=== PATIENT | male | born 1995 | race African-American/Black ===

== ENCOUNTER 2024-06-08 10:23 | Emergency (ER) | payer MEDICAID ==
[~2024-06-08] VITALS: Ht 172.7 cm; Wt 70.0 kg
[2024-06-08 10:36] VITALS: O2SAT 100
[2024-06-08] MEDS: ONDANSETRON HCL 4MG/2ML INJ IV STA (10:52)
[2024-06-08] MEDS: SODIUM CHLORIDE 0.9% 1,000 ML IV ONE ×2 (11:00→13:45)
[2024-06-08 11:01] LABS: BASOPHILS % 0.4 % (0.0-2.0); HEMATOCRIT. 43.8 % (42.0-52.0); HEMOGLOBIN. 15.5 g/dL (14.0-18.0); LYMPHOCYTES % 7.8 % (20.0-50.0); MEAN CORPUSCULAR HEMOGLOBIN 32.5 pg (28.0-32.0); MEAN CORPUSCULAR HGB CONC 35.3 g/dL (31.0-37.0); MEAN CORPUSCULAR VOLUME 92.2 fL (80.0-94.0); MEAN PLATELET VOLUME 8.4 fl (7.4-10.4); MONOCYTES % 2.4 % (2.0-8.0); NEUTROPHILS % 89.4 % (40.0-76.0); PLATELET 307 x1000/uL (130-400); RED BLOOD CELL COUNT 4.75 mill/uL (4.7-6.1); RED CELL DISTRIBUTION WIDTH 14.1 % (11.6-14.6); WHITE BLOOD COUNT 9.1 x1000/uL (4.5-11.0)
[2024-06-08 11:13] LABS: CHLORIDE 97 mEq/L (98-107); POTASSIUM 4.9 mEq/L (3.5-5.1); SODIUM 131 mEq/L (136-145)
[2024-06-08 11:14] LABS: CALCIUM 9.5 mg/dL (8.7-10.4); CARBON DIOXIDE 24 mEq/L (21-32)
[2024-06-08 11:19] LABS: CREATININE 1.9 mg/dL (0.6-1.3); GLUCOSE 159 mg/dL (70-105)
[2024-06-08 11:20] LABS: UREA NITROGEN BLOOD 32 mg/dL (9-23)
[2024-06-08 11:21] LABS: ALANINE AMINOTRANSFERASE 55 IU/L (10-49); ALBUMIN 5.3 g/dL (3.2-4.8); ASPARTATE AMINOTRANSFERASE 124 IU/L (<34); BILIRUBIN TOTAL 1.5 mg/dL (0.1-1.0)
[2024-06-08 11:22] LABS: PROTEIN TOTAL 8.8 g/dL (6.0-8.3)
[2024-06-08 16:00] VITALS: BP 140/78; PULSE 73; RESP 17; TEMP 98
[2024-06-08 16:17] LABS: CLARITY URINE CLEAR (CLEAR); COLOR URINE YELLOW (YELLOW); GLUCOSE URINE TRACE (NEGATIVE); KETONES URINE 1+ (NEGATIVE); LEUKOCYTE ESTERASE URINE NEGATIVE (NEGATIVE); NITRITE URINE NEGATIVE (NEGATIVE); OCCULT BLOOD URINE NEGATIVE (NEGATIVE); PH URINE 5.5 (4.5-8.0); PROTEIN URINE NEGATIVE (NEGATIVE); UROBILINOGEN URINE 0.2 E.U./dL (0.2-1.0)
[2024-06-08 16:25] LABS: *AMPHETAMINES SCREEN URINE NEGATIVE (NEGATIVE); *BARBITURATES SCREEN URINE NEGATIVE (NEGATIVE); *BENZODIAZEPINES SCREEN URINE NEGATIVE (NEGATIVE); *COCAINE SCREEN URINE NEGATIVE (NEGATIVE); CANNABINOID URINE SCREEN PRESUMPTIVE POSITIVE (NEGATIVE); ECSTASY MDMA SCREEN URINE NEGATIVE (NEGATIVE); METHADONE URINE SCREEN NEGATIVE (NEGATIVE); OPIATES URINE SCREEN NEGATIVE (NEGATIVE); PHENCYCLIDINE URINE SCREEN NEGATIVE (NEGATIVE)
[2024-06-08] MEDS ORDERED: INSU100I13 SQ (16:29)
[2024-06-08] MEDS ORDERED: INSU100I28 SQ (16:29)
[2024-06-08 16:50] LABS: BACTERIA URINE TRACE; RBC URINE NONE SEEN /hpf (0-2); SQUAMOUS EPITHELIAL CELL URINE RARE /lpf (RARE/1+)
[2024-06-08 16:51] LABS: WBC URINE 0-2 /hpf (0-2)
== END 2024-06-08 16:48 | disposition home or self-care (01) ==
LOC: ER 10:23
DX: R11.2 Nausea with vomiting, unspecified (principal); E10.65 Type 1 diabetes mellitus with hyperglycemia; Z20.822 Contact with and (suspected) exposure to COVID-19
CPT/HCPCS: 80053; 80305; 81003; 80320; 82962; 83690; 85025; 87804 ×2; 36415; 76705; 96361; 96374; 99285; 87426; J2405; J7030; G0480